=== PATIENT | female | born 1995 | race Caucasian/White ===

== ENCOUNTER 2018-02-08 07:52 | Emergency (ER) | payer MEDICAID ==
[~2018-02-08] VITALS: Ht 175.3 cm; Wt 69.1 kg
[~2018-02-08 07:52] MED LIST: CLIN150C8 PO
[2018-02-08 07:53] VITALS: BP 128/77
[2018-02-08] MEDS ORDERED: NYST30CR2 TP (08:17)
== END 2018-02-08 08:24 | disposition home or self-care (01) ==
LOC: ER 07:52
DX: B35.8 Other dermatophytoses (principal); Z79.899 Other long term (current) drug therapy
CPT/HCPCS: 99283

== ENCOUNTER 2018-09-20 09:17 | Emergency (ER) | payer MEDICAID ==
[~2018-09-20] VITALS: Ht 175.3 cm; Wt 80.1 kg
[2018-09-20 09:21] VITALS: BP 136/95
[2018-09-20] MEDS ORDERED: PENI500T2 PO (10:03)
== END 2018-09-20 10:16 | disposition home or self-care (01) ==
LOC: ER 09:18
DX: O26.893 Other specified pregnancy related conditions, third trimester (principal); K08.89 Other specified disorders of teeth and supporting structures; R59.1 Generalized enlarged lymph nodes; Z3A.37 37 weeks gestation of pregnancy
CPT/HCPCS: 99283

== ENCOUNTER 2022-09-11 10:52 | Emergency (ER) | payer MEDICAID ==
[~2022-09-11] VITALS: Ht 177.8 cm; Wt 77.3 kg
[2022-09-11 11:02] VITALS: BP 116/70
[2022-09-11] MEDS ORDERED: AZIT250T2 PO (14:03)
== END 2022-09-11 14:34 | disposition home or self-care (01) ==
LOC: ER 10:52
DX: H66.93 Otitis media, unspecified, bilateral (principal); Z87.891 Personal history of nicotine dependence
CPT/HCPCS: 99283

== ENCOUNTER 2024-12-08 11:43 | Emergency (ER) | payer MEDICAID ==
[~2024-12-08] VITALS: Ht 175.3 cm; Wt 80.0 kg
[2024-12-08 11:49] VITALS: BP 102/57; PULSE 73; RESP 16; TEMP 97.6; O2SAT 98
[2024-12-08] MEDS ORDERED: AMOX-580 PO (12:12)
--- NOTE | 2024-12-08 12:13 | Physician Documentation ---
HPI ~ General Chief Complaint: Tooth Problem Stated Complaint: TOOTH ABSCESS Time Seen by MD: 11:55 OK to notify your PCP?: Yes Primary Medical Doctor: NONE Source: patient Mode of Arrival: POV Exam Limitations: no limitations History of Present Illness HPI Comment 29-year-old female here with left lower facial swelling which she states is due to one of her molars in her left lower mandible where she states she has numerous broken teeth. She reports that the pain is very minimal but what is concerned her as the swelling. She states she is and she just wants to get on an antibiotic she is not requesting any medication for pain. Denies fever, chills, sore throat, painful or difficulty swallowing. Medication Reconciliation Allergies: Uncoded Allergies: PENICILLIN (Allergy, Intermediate, 12/08/24) rash Past Medical History Past Medical History: No Pertinent History Past Surgical History: no surgical history Alcohol Use: Occasionally Drug Use: none Lives with: Family Lives In: Home Occupation: employed Review of Systems All Other Systems at this time: Reviewed and Negative Physical Exam Vital Signs: Temperature: 97.6, Source: Temporal, Heart Rate: 73, Respiratory Rate: 16, BP: 102/57, Pulse Oximetry: 98, Weight: 80.000 Oxygen Flow Rate: 0 Physical Exam General Appearance: Alert, WD/WN. NAD. HEENT: NCAT, PERRL, EOMI. LEFT LOWER MANDIBULAR SWELLING WITH MILD TTP. NO ERYTHEMA. LEFT LOWER MOLARS ARE ALL FRACTURED WITH NUMEROUS AVULSIONS. GINGIVA ON THE BUCCAL SIDE ADJACENT TO LEFT LOWER MOLAR IS EDEMATOUS AND TTP. Pharyngeal wall normal. Neck: Supple, trachea midline. Left submandibular LAD ttp. Cardiovascular: RRR. No m/r/g. Lungs: CTAB. Breathing unlabored Extremities: Normal inspection. No edema. Skin: Warm/dry, normal color Neurological: Alert and oriented x4, normal gait. Psychiatric: Affect congruent with mood. Progress Results/Orders Reviewed/noted all lab results: Yes Results/Orders Vital Signs 12/08/24 11:49 Temp 97.6 Pulse 73 Resp 16 B/P (MAP) 102/57 Pulse Ox 98 O2 Flow Rate 0 Medical Decision Making Differential Dx:Considerations: Include: Alveolar fracture, Alveolar osteitis, ANUG, Facial Cellulitis, Periapical abscess, Peridontal abscess, Post-extraction bleeding, Pulpitis, Tooth avulsion, Tooth eruption, Tooth Fracture, Trigeminal neuralgia, Tooth subluxation, Other Departure Time of Disposition: 12:11 Disposition: 01 HOME / SELF CARE / HOMELESS Impression: Primary Impression: Dental abscess Condition: Stable Discharge Instructions: Dental Abscess Additional Instructions: F/U WITH DENTIST SALT WATER RINSES ANTIBIOTIC SENT TO PHARMACY Referrals: NO PRIMARY CARE PROVIDER (PCP) Prescriptions Amox Tr/Potassium Clavulanate 875/125 MG (Augmentin 875/125 MG) 875 Mg-125 Mg Tablet 1 TAB PO Q12H for 10 Days, #20 TAB Prov: STANTON BRAVO 12/08/24 Education Educated: Patient Educated regarding: diagnosis, treatment, need for follow up Signature Scribe Signature: X Attestation: STANTON ONOFRE Dec 08, 2024 12:13
== END 2024-12-08 12:17 | disposition home or self-care (01) ==
LOC: ER 11:43
DX: O99.612 Diseases of the digestive system complicating pregnancy, second trimester (principal); K04.7 Periapical abscess without sinus; Z3A.00 Weeks of gestation of pregnancy not specified; Z72.89 Other problems related to lifestyle
CPT/HCPCS: 99283